=== PATIENT | female | born 1980 | race Caucasian/White ===

== ENCOUNTER → 2017-09-01 | Outpatient (CLI) | payer BC | LOC: FIMAGING 11:57 | PROVIDERS: ATTEND Hospitalist | DX: O09.522 Supervision of elderly multigravida, second trimester (principal); O09.292 Supervision of pregnancy with other poor reproductive or obstetric history, second trimester; Z3A.20 20 weeks gestation of pregnancy ==

== ENCOUNTER 2018-01-17 19:17 | Inpatient (IN) | payer BC ==
[2018-01-17] MEDS ORDERED: OXYTOCIN/RINGERS LACTATE 1,000 ML IV PRN (20:25)
[2018-01-17] MEDS ORDERED: LR 1,000 ML IV PRN (20:25)
[2018-01-17] MEDS ORDERED: TERBUTALINE SULFATE 1 MG/ML VIAL IV PRN (20:25)
[2018-01-17] MEDS ORDERED: IBUPROFEN 600 MG TAB PO PRN (20:25)
[2018-01-17] MEDS ORDERED: MISOPROSTOL 200 MCG TAB PR PRN (20:25)
[2018-01-17] MEDS ORDERED: EPSOM SALT 454 GM TP PRN (20:25)
[2018-01-17] MEDS ORDERED: OLIVE OIL 118 ML BTL MISC PRN (20:25)
[2018-01-17] MEDS ORDERED: LIDOCAINE 1% 300 MG/30 ML SDV SC PRN (20:25)
[2018-01-17] MEDS ORDERED: AMPICILLIN SODIUM 2 GM in NS 100 ML IV ONE (20:29)
[2018-01-17] MEDS ORDERED: AMPICILLIN SODIUM 1 GM in NS 100 ML IV SCH (20:30)
[2018-01-17 20:57] LABS: PLATELET COUNT 215 10^3/uL (150-400)
[2018-01-17] MEDS ORDERED: LIDOCAINE 1% 300 MG/30 ML SDV ONE (21:07)
[2018-01-17] MEDS ORDERED: TERBUTALINE SULFATE 1 MG/ML VIAL ONE (21:08)
[2018-01-17] MEDS ORDERED: OLIVE OIL 118 ML BTL ONE (21:08)
[2018-01-17] MEDS ORDERED: OXYTOCIN 10 UNIT/ML VIAL ONE (21:08)
[2018-01-17] MEDS ORDERED: MISOPROSTOL 200 MCG TAB ONE (21:08)
[2018-01-17] MEDS ORDERED: AMMONIA AROMATIC 1 EACH AMP IH ONE (21:08)
--- NOTE | 2018-01-17 21:58 | PDGENHP ---
History and Physical - Chief Complaint Early labor - History of Present Illness 37 yo at 40w3d presented this evening in early labor, dilated to 3cm. Overall uncomplicated - AMA, anemia on iron, and h/o oligo with G1 ( Hang) for which they were induced at 41 wks. They did need a VAVD for him bc of indications during pushing. Reportedly had nuchal cord. GBS positive. They called this AM with regular ctx's and stayed at home for many hours, but called back reporting much stronger ctx's and counseled them to come in. Labs: O positive Antibody negative HepB/RPR/HIV neg Rubella immune Carrier TRIO screening neg 2014 GC/C neg AFP normal NIPT Panoramo normal XX female H/H 28 wks 11.6/34.2 Glucola 99 GBS POSITIVE History Information - Allergies/Home Medication List Allergies/Adverse Reactions: fluconazole Allergy (Verified 01/17/18 19:35) Home Medications: Docosahexanoic Acid [Dha] 100 mg PO 05/14/15 [Last Taken 05/14/15 08:00] Vit27&Calcium/Iron/FA [] tab PO DAILY 05/14/15 [Last Taken 08:00] Dha 01/17/18 [Last Taken 01/17/18 08:00] FOLIC ACID 01/17/18 [Last Taken 01/17/18 08:00] Iron 01/17/18 [Last Taken 01/17/18 12:00] I have personally reviewed and updated: family history, medical history, social history, surgical history - Past Medical History Additional medical history: Anemia, H/o SAB (no D&C) - Surgical History Additional surgical history: VAVD for indications w G1, [place] teeth - Family History Positive for: non-pertinent Additional family history: None - Social History Smoking Status: Former smoker (20-24) Alcohol Use: None Drug Use: None Review of Systems Review of Systems: ROS: 10pt was reviewed & negative except for what was stated in HPI & below Physical Exam Physical Exam: NAD, appears uncomfortable with ctx's. Belly gravid, soft, longitudinal lie. FHR 125bpm, mod dewey, accels present, no decels Ctx's q 5 min Lab Data & Imaging Review 01/17/18 20:44 WBC 11.04 10^3/uL (3.80-9.50) H 01/17/18 20:44 RBC 4.16 10^6/uL (4.18-5.33) L 01/17/18 20:44 Hgb 13.0 g/dL (12.6-16.3) 01/17/18 20:44 Hct 36.9 % (38.0-47.0) L 01/17/18 20:44 MCV 88.7 fL (81.5-99.8) 01/17/18 20:44 MCH 31.3 pg (27.9-34.1) 01/17/18 20:44 MCHC 35.2 g/dL (32.4-36.7) 01/17/18 20:44 RDW 12.8 % (11.5-15.2) 01/17/18 20:44 Plt Count 215 10^3/uL (150-400) 01/17/18 20:44 MPV 9.8 fL (8.7-11.7) 01/17/18 20:44 Neut % (Auto) 71.3 % (39.3-74.2) 01/17/18 20:44 Lymph % (Auto) 20.4 % (15.0-45.0) 01/17/18 20:44 Hale % (Auto) 7.4 % (4.5-13.0) 01/17/18 20:44 Eos % (Auto) 0.2 % (0.6-7.6) L 01/17/18 20:44 Baso % (Auto) 0.2 % (0.3-1.7) L 01/17/18 20:44 Nucleat RBC Rel Count 0.0 % (0.0-0.2) 01/17/18 20:44 Absolute Neuts (auto) 7.88 10^3/uL (1.70-6.50) H 01/17/18 20:44 Absolute Lymphs (auto) 2.25 10^3/uL (1.00-3.00) 01/17/18 20:44 Absolute Monos (auto) 0.82 10^3/uL (0.30-0.80) H 01/17/18 20:44 Absolute Eos (auto) 0.02 10^3/uL (0.03-0.40) L 01/17/18 20:44 Absolute Basos (auto) 0.02 10^3/uL (0.02-0.10) 01/17/18 20:44 Absolute Nucleated RBC 0.00 10^3/uL (0-0.01) 01/17/18 20:44 Immature Gran % 0.5 % (0.0-1.1) 01/17/18 20:44 Immature Gran # 0.05 10^3/uL (0.00-0.10) 01/17/18 20:44 Patient ABO/Rh O POSITIVE 01/17/18 20:44 Antibody Screen NEGATIVE 01/17/18 20:44 Assessment & Plan Assessment: 37 yo at 40w3d presents in early labor. - Expectant mgmt. - Penicillin for GBS positive, start on admission. - Had epidural for Hang, would like to start with Nitrous. - Rh pos, rubella immune. - Anemia: H/H looks good on arrival. KACEY
[2018-01-18] MEDS ORDERED: fentaNYL 2MCG/ML/BUP 0.1% RTU 100 ML BAG EP ONE (00:24)
[2018-01-18] MEDS ORDERED: PHENYLEPHRINE HCL 100 MCG/ML SYR ONE (00:25)
--- NOTE | 2018-01-18 01:14 | PREANESOB ---
Obstetric Pre-Anesthesia Info - General Info : 3 Para: 1 ANDREW: 01/14/18 Gestational Age: 40 week(s) and 3 day(s) - Info Status: Full Term, [place] Monitors: External FHR Pattern: Reassuring - Labor Status PIH: No Indications for Labor Analgesia: Pain Control Labor Epidural: Proposed Anesthesia Allergies/Adverse Reactions: Allergy/AdvReac Type Severity Reaction Status Date / Time fluconazole Allergy Verified 01/17/18 19:35 Home Medications: Medication Instructions Recorded Docosahexanoic Acid [Dha] 100 mg PO 05/14/15 Vit27&Calcium/Iron/FA tab PO DAILY 05/14/15 [] Hydrocodone/APAP 5/325 [[place] 1 - 2 tab PO Q4 PRN #20 tab 05/17/15 5/325 (*)] Ibuprofen [Motrin (*)] 600 mg PO Q6 PRN #30 tab 05/17/15 Dha 01/17/18 FOLIC ACID 01/17/18 Iron 01/17/18 Visit Medications: Generic Name Dose Route Start Last Admin Trade Name Wilmerq PRN Reason Stop Dose Admin Lactated Ringer's 1,000 mls @ 0 mls/hr 01/17/18 20:25 01/18/18 00:05 Lr IV 01/18/18 20:24 1,000 mls PRN PRN Administration SEE PROTOCOL CONDITIONS Protocol Per Protocol Oxytocin/Lactated Ringer's 1,000 mls @ 125 mls/hr 01/17/18 20:25 Pitocin 20 Units/Lr (Premix) IV PRN PRN Post bleeding Ampicillin Sodium 1 gm/ Sodium 100 mls @ 200 mls/hr 01/18/18 01:00 Chloride IV 02/17/18 00:59 Q4H LULI Protocol Ibuprofen 600 mg 01/17/18 20:25 Motrin PO ONCE PRN post , pain Lidocaine HCl 300 mg 01/17/18 20:25 Lidocaine Hcl 1% SC 07/16/18 20:24 ONCE PRN episiotomy Magnesium Sulfate 454 gm 01/17/18 20:25 Epsom Salt TP 07/16/18 20:24 Q1H PRN perineal discomfort Misoprostol 800 - 1,000 mcg 01/17/18 20:25 Cytotec RI ONCE PRN Vaginal Atony/Bleeding [place] Oil 118 ml 01/17/18 20:25 Sweet Oil MISC 07/16/18 20:24 ONCE PRN perineal massage Terbutaline Sulfate 0.25 mg 01/17/18 20:25 Brethine IV 07/16/18 20:24 ONCE PRN Tachysystole Discontinued Medications Generic Name Dose Route Start Last Admin Trade Name Tom PRN Reason Stop Dose Admin Ammonia (Aromatic Spirit) Confirm 01/17/18 21:08 Ammonia Aromatic Administered 01/17/18 21:09 Dose 1 each IH .STK-MED ONE Fentanyl/Bupivacaine HCl Confirm 01/18/18 00:24 Fentanyl/Bupivacaine/Ns 2 Mcg/Ml 0.1% (Premix Administered 01/18/18 00:25 Dose 100 ml EP .STK-MED ONE Ampicillin Sodium 2 gm/ Sodium 110 mls @ 220 mls/hr 01/17/18 20:29 01/17/18 21:02 Chloride IV 01/17/18 20:58 110 mls ONCE ONE Administration Protocol Lidocaine HCl Confirm 01/17/18 21:07 Lidocaine Hcl 1% Administered 01/17/18 21:08 Dose 300 mg .ROUTE .STK-MED ONE Misoprostol Confirm 01/17/18 21:08 Cytotec Administered 01/17/18 21:09 Dose 1,000 mcg .ROUTE .STK-MED ONE [place] Oil Confirm 01/17/18 21:08 Sweet Oil Administered 01/17/18 21:09 Dose 118 ml .ROUTE .STK-MED ONE Oxytocin Confirm 01/17/18 21:08 Pitocin Administered 01/17/18 21:09 Dose 40 unit .ROUTE .STK-MED ONE Phenylephrine HCl Confirm 01/18/18 00:25 Neosynephrine Administered 01/18/18 00:26 Dose 1,000 mcg .ROUTE .STK-MED ONE Terbutaline Sulfate Confirm 01/17/18 21:08 Brethine Administered 01/17/18 21:09 Dose 1 mg .ROUTE .STK-MED ONE - Anesthesia History Response to Local Anesthetics: Normal Anesthesia & Operative History: No Prior Problems - Vital Signs Height/Weight (Nursing): Height 162.56 cm Weight 71.668 kg - Focused Exam Neck exam: FROM Mallampati Score: Class 2 Mouth exam: normal dental/mouth exam Pulmonary: no respiratory distress, no rales or rhonchi, clear to auscultation Cardiovascular: regular rate and rhythym, no murmur, rub, or gallop Labs: 01/17/18 20:44 Patient ABO/Rh O POSITIVE 01/17/18 20:44 - Plan Consent Signed and on Chart: Yes Patient/Guardian Understands and Agrees to Plan: Yes
[2018-01-18] MEDS: AMPICILLIN SODIUM 1 GM in NS 100 ML IV SCH ×4 (01:15→18:03)
[2018-01-18] MEDS ORDERED: fentaNYL 2MCG/ML/BUP 0.1% RTU 100 ML EP SCH (01:30)
[2018-01-18] MEDS ORDERED: LR 500 ML IV SCH (01:30)
--- NOTE | 2018-01-18 01:32 | POSTANESTH ---
Post Anesthetic Evaluation Cardiovascular Status: Normal, Stable, Similar to Pre-Op Cond Respiratory Status: Normal, Stable, Similar to Pre-op Cond. Level of Consciousness/Mental Status: Can Participate in Eval, Alert and Oriented Pain Control: Adequate, Prn Tx Ordered Nausea/Vomiting Control: Adequate, Prn Tx Ordered Complications Possibly Related to Anesthesia: Other, See Comments (Probable wet tap. Catheter inserted same level epidurally; it functioned normally. I explained possible PDPH to patient, along with treatment options including blood patch.)
[2018-01-18] MEDS: PHENYLEPHRINE HCL 100 MCG/ML SYR IVP PRN ×3 (02:54→04:23)
[2018-01-18] MEDS ORDERED: fentaNYL 100 MCG/2 ML INJ ONE ×2 (03:59→06:25)
[2018-01-18] MEDS ORDERED: BUPIVACAINE 0.25% 30 ML SDV ONE ×2 (03:59→06:25)
[2018-01-18] MEDS ORDERED: LR 500 ML IV PRN (05:58)
[2018-01-18] MEDS ORDERED: OXYTOCIN/RINGERS LACTATE 500 ML IV SCH (06:00)
[2018-01-18] MEDS ORDERED: DOCUSATE SODIUM 100 MG CAP PO PRN (11:33)
--- NOTE | 2018-01-18 11:38 | OBDEL ---
Info Type: Vaginal Presentation at Delivery: Vertex L&D Analgesia/Anesthesia Type: Epidural GBS+: Yes Antibiotic Used for + GBS: Ampicillin Intrapartum Medications: Generic Name Dose Route Start Last Admin Trade Name Tom PRN Reason Stop Dose Admin Lactated Ringer's 1,000 mls @ 0 mls/hr 01/17/18 20:25 01/18/18 00:05 Lr IV 01/18/18 20:24 1,000 mls PRN PRN Administration SEE PROTOCOL CONDITIONS Protocol Per Protocol Ampicillin Sodium 1 gm/ Sodium 100 mls @ 200 mls/hr 01/18/18 01:00 01/18/18 04:50 Chloride IV 02/17/18 00:59 100 mls Q4H LULI Administration Protocol Fentanyl/Bupivacaine HCl 100 mls @ 0 mls/hr 01/18/18 01:30 01/18/18 06:09 Fentanyl/Bupivacaine/Ns 2 Mcg/Ml 0.1% (Premix EP 01/28/18 01:29 100 mls CONT LULI Administration Protocol As Directed Oxytocin/Lactated Ringer's 500 mls @ 0 mls/hr 01/18/18 06:00 01/18/18 06:21 Pitocin 30 Units/Lr (Premix) IV 07/17/18 05:59 500 mls CONT LULI Administration Protocol Per Protocol Phenylephrine HCl 100 mcg 01/18/18 01:14 01/18/18 04:23 Neosynephrine IVP 07/17/18 01:13 100 mcg .Q2M PRN Administration Hypotension Discontinued Medications Generic Name Dose Route Start Last Admin Trade Name Tom PRN Reason Stop Dose Admin Ampicillin Sodium 2 gm/ Sodium 110 mls @ 220 mls/hr 01/17/18 20:29 01/17/18 21:02 Chloride IV 01/17/18 20:58 110 mls ONCE ONE Administration Protocol Ibuprofen 600 mg 01/17/18 20:25 01/18/18 10:56 Motrin PO 600 mg ONCE PRN Administration post , pain - Care Provider Sand Screener Operator/CIRCULATING NURSE: Rhoda Philip Indications for Delivery: Spontaneous Labor Vaginal Delivery - Delivery Provider Delivery Physician/CNM: Addie Hargrove - Labor and Delivery Onset of Contractions Date: 01/17/18 Onset of Contractions Time: 16:00 Onset of Contractions Type: Spontaneous Rupture of Membranes Date: 01/18/18 Rupture of Membranes Time: 04:25 Rupture of Membranes Type: Artificial Amniotic Fluid Color: Clear Dilation Complete Date: 01/18/18 Dilation Complete Time: 03:22 Placenta Delivery Date: 01/18/18 Placenta Delivery Time: 08:55 Total Hours of Labor: 16 Non-surgical Procedures: Amniotomy Laceration: 2nd Degree Repair: 3-0, Vicryl Vaginal Sponge Count Correct: Yes Vaginal Needle Count Correct: Yes Vaginal Sweep Performed: Yes EBL: 300 Delivery Events: Nuchal Cord (x1 loose and reduced) Cord Gases: Cord Gases Cord Blood PCO2 65 mmHg (37-60) H 01/18/18 08:52 Cord Base Excess -8.9 mEq/L (-13.6--3.2) 01/18/18 08:52 Cord ABG pH 7.15 (7.10-7.37) 01/18/18 08:52 Cord VBG pH 7.27 (7.20-7.42) 01/18/18 08:52 - Medications Labor Augmentation/Induction Methods Used: Pitocin Labor Augmentation/Induction Indication: Inadequate Contraction Strength Operative Report - Delivery Cord Gases: Cord Gases Cord Blood PCO2 65 mmHg (37-60) H 01/18/18 08:52 Cord Base Excess -8.9 mEq/L (-13.6--3.2) 01/18/18 08:52 Cord ABG pH 7.15 (7.10-7.37) 01/18/18 08:52 Cord VBG pH 7.27 (7.20-7.42) 01/18/18 08:52 Assissted Delivery Assisted Delivery Type: Vacuum Station: +2 Pop offs (Total): 0 Pulls (Total): 1 Assisted Delivery Comment: one pull to intoitus and then pt pushed and delivered on next contraction [place] Data ANDREW: 01/14/18 Gestational Age: 40 week(s) and 4 day(s) [place] Delivery Date: 01/18/18 Delivery Time: 08:50 Sex of Infant: Female Score (1 Min): 6 Score (5 Min): 8 ICD10 Worksheet Patient Problems: Problems Problem Status Onset Status post vacuum-assisted vaginal delivery Acute
[2018-01-18] MEDS: ACETAMINOPHEN 325 MG TAB PO SCH ×3 (15:36→21:45)
[2018-01-18] MEDS: IBUPROFEN 600 MG TAB PO SCH (17:28)
[2018-01-18] MEDS ORDERED: NS IVP ONE (18:15)
[2018-01-18] MEDS ORDERED: COSYNTROPIN IVP ONE (18:15)
[2018-01-19] MEDS: IBUPROFEN 600 MG TAB PO SCH ×5 (01:50→21:32)
[2018-01-19] MEDS: ACETAMINOPHEN 325 MG TAB PO SCH ×3 (06:45→19:34)
--- NOTE | 2018-01-19 10:50 | OBPP ---
Progress Note Assessment/Plan: Assessment: 1) s/p PPD # 1 - pt is stable 2) WEBB - ?spinal tap, pt seen by anesthesiology Plan: Continue routine pp care If no improvement in WEBB, possible blood patch in am Plan for d/c home in am 01/2001/19/18 10:47 Subjective/ Course: 01/19/18 10:49 Pt seen and examined. She still has a WEBB this am, and has tried drinking coffee and so far no help. Mild cramping noted. Mod lochia. Pt is OOB, navjot regular diet , voiding and passing flatus. BF is going well so far. Objective: 01/17/18 20:44 Patient ABO/Rh O POSITIVE 01/17/18 20:44 Temp Pulse Resp BP Pulse Ox 36.1 C 60 16 98/65 L 97 01/19/18 07:38 01/19/18 07:38 01/19/18 07:38 01/19/18 07:38 01/19/18 07:38 Uterine Position/Fundal Height: Umbilicus -2 Uterine Tone: Firm Physical Exam - Physical Exam General Appearance: WD/WN, alert, no apparent distress Respiratory: lungs clear, normal breath sounds Cardiac/Chest: regular rate, rhythm Abdomen: normal bowel sounds, non-tender, soft, flatus (+) Extremities: non-tender, normal inspection Skin: normal color, warm/dry Neuro/Psych: alert, normal mood/affect, oriented x 3
--- NOTE | 2018-01-19 11:21 | PDPAINCON ---
Pain Management Consultation - Subjective Pain at rest (/10): 3 Pain with activity (/10): 5 Pain is: under control Activity: able to ambulate - Objective Technique: continuous epidural Catheter site: clean, dry, intact Sensory and motor exam: block has resolved, no apparent ill effects (Pt has mild to moderate PDPHA) - Assessment/Plan Assessment/Plan: other Additional comments: Block resolved, wet tap and pt w PDPHA, plan to consider EBP tomorrow.
[2018-01-20] MEDS: ACETAMINOPHEN 325 MG TAB PO SCH ×3 (01:54→13:41)
[2018-01-20] MEDS: IBUPROFEN 600 MG TAB PO SCH ×2 (05:49→13:44)
--- NOTE | 2018-01-20 08:34 | OBPP ---
Progress Note Assessment/Plan: Assessment: PPD2 s/p VAVD for arrest of descent - baby was OP. Had wet tap with epidural - now with PDPHA. Blood patch this AM, will reassess in the afternoon. Will likely be able to go home if she wants. Hct reassuring, lochia minimal. Rh pos, Rubella immune. GBS positive - delivered at 0830 on 01/18/18. Recieved adequate abx. KACEY 01/20/18 09:59 Subjective/ Course: 01/19/18 10:49 Pt seen and examined. She still has a WEBB this am, and has tried drinking coffee and so far no help. Mild cramping noted. Mod lochia. Pt is OOB, navjot regular diet , voiding and passing flatus. BF is going well so far. 01/20/18 09:56 Saw this AM prior to blood patch. Tearful and scared, just got done talking with Juan Carlos about the procedure. She is indeed quite uncomfortable with her WEBB though, is ready to do something about it. BF going well, baby doing well, pain well controlled all things considered. Objective: 01/17/18 20:44 Patient ABO/Rh O POSITIVE 01/17/18 20:44 Temp Pulse Resp BP Pulse Ox 36.8 C 68 16 90/54 L 97 01/19/18 21:30 01/19/18 21:30 01/19/18 21:30 01/19/18 21:30 01/19/18 07:38 Uterine Position/Fundal Height: At Umbilicus Uterine Tone: Firm
[2018-01-20 08:36] VITALS: BP 105/67
[2018-01-20] MEDS ORDERED: LIDOCAINE 1% 2 ML INJ ONE (10:05)
--- NOTE | 2018-01-20 11:43 | PDCONSULT ---
Order Runner Note: This patient is a 37 year old female with a typical PDPH about 2 to 3 days post labor and delivery with a labor epidural. She received 1mg of Cosyntropin IV on the evening of 01/18/18 with some temporary improvement until this morning (). She now desires to go ahead with a blood patch. The procedure including risks was explained to her band her , questions were answered, and a consent signed. She was brought to the L&D PACU and placed on a cart with her left side down. Her lower back was cleaned with chloroprep and infiltrated with lidocaine. A 17ga Tuohy needle was placed into the epidural space at L34 using the MINERVA technique. 25ml of blood was drawn from her left antecubital vein after chloroprep cleansing and injected into the epidural space. The epidural needle was removed and tegaderm placed over the puncture site. She tolerated the procedure well, reported improvement in her headache and was given my phone numbers to call for any questions or concerns. Juan Carlos Fallon MD
--- NOTE | 2018-01-20 14:04 | OBGCSDC ---
General Delivery Information - General Info : 3 Para: 2 Abortions: 1 Type: Vaginal L&D Analgesia/Anesthesia Type: Epidural Admission Date: 01/18/18 Labs: Patient ABO/Rh O POSITIVE 01/17/18 20:44 Hct 36.9 % (38.0-47.0) L 01/17/18 20:44 - Hospital Course : 01/19/18 10:49 Pt seen and examined. She still has a WEBB this am, and has tried drinking coffee and so far no help. Mild cramping noted. Mod lochia. Pt is OOB, navjot regular diet , voiding and passing flatus. BF is going well so far. 01/20/18 09:56 Saw this AM prior to blood patch. Tearful and scared, just got done talking with Juan Carlos about the procedure. She is indeed quite uncomfortable with her WEBB though, is ready to do something about it. BF going well, baby doing well, pain well controlled all things considered. 01/20/18 14:08 Pt did receive a blood patch this AM with Juan Carlos Fallon - Now almost pain- free. Quite happy to be feeling better - ready for home. Vaginal - Delivery Provider Delivery Physician/CNM: Addie Hargrove - Diagnosis Labor: Spontaneous Rupture of Membranes Type: Artificial Amniotic Fluid Color: Clear Laceration: 2nd Degree Repair: 3-0, Vicryl Delivery Events: Nuchal Cord (x1 loose and reduced) - Procedures Assisted Delivery Type: Vacuum Non-surgical Procedures: Amniotomy - Delivery Non-surgical Procedures: Amniotomy EBL: 300 [place] Data ANDREW: 01/14/18 Gestational Age: 40 week(s) and 6 day(s) [place] Delivery Date: 01/18/18 Delivery Time: 08:50 Sex of Infant: Female [place] Weight (gm): 3200 kg Score (1 Min): 6 Score (5 Min): 8 Discharge Information - Discharge Information Condition: Good Instruction/Follow Up: See Instruction Sheet, Four Weeks, Six Weeks
== END 2018-01-20 14:00 | disposition home or self-care (01) | DRG 806 ==
LOC: FLD 19:17 → OBSVTOIN 01-18 09:22 → FOB 01-18 11:30
PROVIDERS: ADMIT Obstetrics & Gynecology; ATTEND Obstetrics & Gynecology
PROC: 10D07Z6 Extraction of Products of Conception, Vacuum, Via Natural or Artificial Opening (ICD-10-PCS; principal; 2018-01-18)
PROC: 0KQM0ZZ Repair Perineum Muscle, Open Approach (ICD-10-PCS; principal; 2018-01-18)
PROC: 10907ZC Drainage of Amniotic Fluid, Therapeutic from Products of Conception, Via Natural or Artificial Opening (ICD-10-PCS; 2018-01-19)
DX: O32.4XX0 Maternal care for high head at term, not applicable or unspecified (principal); O32.8XX0 Maternal care for other malpresentation of fetus, not applicable or unspecified; O99.354 Diseases of the nervous system complicating childbirth; G97.1 Other reaction to spinal and lumbar puncture; O99.824 Streptococcus B carrier state complicating childbirth; O70.1 Second degree perineal laceration during delivery; O69.81X0 Labor and delivery complicated by cord around neck, without compression, not applicable or unspecified; Z3A.40 40 weeks gestation of pregnancy; Z37.0 Single live birth
CPT/HCPCS: J0290; J0834; J2370; J2590; J3010; J3105

== ENCOUNTER → 2018-02-16 | Outpatient (CLI) | payer BC | LOC: FLACT 09:54 | PROVIDERS: ATTEND Obstetrics & Gynecology | DX: Z39.1 Encounter for care and examination of lactating mother (principal) | CPT/HCPCS: G0463 ==